=== PATIENT | female | born 1955 | race Caucasian/White ===

== ENCOUNTER → 2017-03-25 | Outpatient (REF) | payer OTHER ==
[~2017-03-25] MED LIST: *MAMMOGRAM; *WHEELCHAI; /ADVA50050; /ESOM40CA; /METH500TA; ACET-654 PO; ACET65TA; ACTO45TA; ACTOS15 PO; ACTOS45 PO; ADV250INH INH; ADVAIR200 INHALATION; ALBOTERNEB INHALATION; ALBU83IN INH; ALBUTEROL INHALATION; ALCOHOL TOP; AMBIENCR PO; AMBIENCR12 PO; AMIT50TA PO; AMLO10TA2 PO; AMOXIL875 PO; ASPI1TAB PO; ASPI81TA83; ATENOLO100 PO; ATENOLOL50 PO; ATOR1TAB21 PO; AUGXR7 PO; AVAPRO150 PO; AVINZA30 PO; BIAXINXL PO; BISO5TAB5 PO; BONIVA PO; CAHNTIXC PO; CALCTAB22; CALCTAB75 PO; CIPRO500 PO; CLARINEX; CLARINEX PO; COLA100C3 PO; CRES40TA PO; DAYPRO PO; DELT1TAB PO; DEXA; DIFLUC150 PO; DURAGE TOPICAL; FLEXERIL10 PO; FLUC10TA; FOLI1TAB2 PO; FURO10IN17 IV; FURO40TA2 PO; GABA-282 PO; GABA800T PO; GLUCCOSEAC TOPICAL; GLUCOP1000 PO; GLUCOTROL5 PO; GUAI1TAB PO; HCTZ25 PO; HCTZ50 PO; HUMU70IN SC; HUMULIN INSULIN; HUMULIN703 SC; HUMULINR SC; HYDR-3716 PO; IMODIUM2 PO; INSURSD SC; IPRASOL4 INH; ISOS30BRAN; ISOS30TA4; ISOS30TA4 PO; KADIAN; KADIAN PO; KEFLEX500 PO; KETEK PO; KLORCON20 PO; LANCMIS; LANCMIS TYPICAL; LASI40TA; LASIX40 PO; LEVA750T PO; LEVO50TA5 PO; LEVO88TA4; LIDODERM TOPICAL; LIPITOR80 PO; LISI-538 PO; LISI10TA4; LISI10TA4 PO; LISINOPR10 PO; LISINOPR40 PO; LOFIBRA PO; LOPE2TAB3 PO; LOPERAMIDE; LOPRESS100 PO; LOPRESS50 PO; METH-107 PO; MIACALCIN; MILKSUS; MOBIC15 PO; MONOPRIL10 PO; MONOPRIL40 PO; MUCI600T34 PO; MULTIVIT PO; NEEDLEBB SC; NEEDLESFIN SQ; NEEDLESGP; NEUR800T; NEURONTIN1 PO; NEURONTIN3 PO; NEURONTIN4 PO; NEURONTIN6 PO; NEURONTIN8 PO; NEXIUM40 PO; NICO21PAT TD; NICODERM TOPICAL; NICODERM14 TOPICAL; NICOTROLIN PO; NITR0.4S; NITROSTAT4 SL; OSCAL; OSCAL600 PO; OXYC1TAB56 PO; OXYC1TAB57 PO; OXYCON10 PO; PANT40TA2 PO; PERC7.5T8; PLAV75TA2; PLAVIX75 PO; POTA20TA; POTA20TA PO; PRAVACHOL2 PO; PREMPRO PO; PROB1TAB PO; PROG20CAP; ROBAXIN PO; ROBAXIN500 PO; SERT-138 PO; SERT100T; SHOWERCH; SIMV20TA2; SYNTHRO025 PO; TESSALO100 PO; THERGRAN; TIOT18INH INH; TRIC145T19; TRICOR145 PO; TRICOR48 PO; TRIL135C6 PO; TYLENOL#3 PO; TYLENOLCOD PO; VALTREX100 PO; VARE1TA; VIBR100C; VICODIN PO; VICODIN-ES PO; VICODIN10 PO; VIOXX125 PO; VIOXX25 PO; VITA-121 PO; VITA100072 PO; VITAMIND PO; WALKER; XOPE0.632; XOPENEX63 NEB; ZEBE5TAB; ZEBETA5 PO; ZETI10TA; ZETIA PO; ZOCOR20 PO; ZOCOR40 PO; ZOLOFT100 PO; ZOLOFT50 PO; ZOSY3INJ2 IV; [UNRECOGNIZED DRUG - CODE] IV; [UNRECOGNIZED DRUG - CODE] PO; [UNRECOGNIZED DRUG - CODE] PO; [UNRECOGNIZED DRUG - CODE] PO; [UNRECOGNIZED DRUG - CODE] PO; [UNRECOGNIZED DRUG - CODE] PO; [UNRECOGNIZED DRUG - CODE] SC; [UNRECOGNIZED DRUG - CODE] SC; [UNRECOGNIZED DRUG - OTHER]; [UNRECOGNIZED DRUG - OTHER]; [UNRECOGNIZED DRUG - OTHER]; [UNRECOGNIZED DRUG - OTHER] -; [UNRECOGNIZED DRUG - OTHER] SC; [UNRECOGNIZED DRUG - OTHER] SC; [UNRECOGNIZED DRUG - OTHER] TOPICAL
[2017-03-26 11:49] LABS: MEAN CORPUSCULAR HGB CONC 31.6 g/dl (32.0-36.5); MEAN CORPUSCULAR VOLUME 97.9 fl (80.0-96.0); RED CELL DISTRIBUTION WIDTH 13.5 % (11.5-14.5); WHITE BLOOD COUNT 3.9 K/mm3 (4.0-10.0)
[2017-03-26 12:00] LABS: ANION GAP 5 MEQ/L (8-16); BLOOD UREA NITROGEN 13 MG/DL (7-18); CALCIUM LEVEL 9.2 MG/DL (8.5-10.1); CARBON DIOXIDE LEVEL 37 MEQ/L (21-32); CHLORIDE LEVEL 97 MEQ/L (98-107); CREATININE FOR GFR 0.97 MG/DL (0.55-1.02); GLOMERULAR FILTRATION RATE > 60.0 (>51); GLUCOSE, FASTING 255 MG/DL (70-105); POTASSIUM SERUM 4.7 MEQ/L (3.5-5.1); SODIUM LEVEL 139 MEQ/L (136-145)
== END ==
LOC: M LABDRAWC 11:28
PROVIDERS: ATTEND Nurse Practitioner Family
DX: I25.10 Atherosclerotic heart disease of native coronary artery without angina pectoris (principal); I10 Essential (primary) hypertension

== ENCOUNTER → 2017-08-10 | Outpatient (REF) | payer OTHER ==
[~2017-08-10] MED LIST changes: -ACET-654 PO; +ACET1TAB17 PO; -COLA100C3 PO; +COLA100C5 PO; -FOLI1TAB2 PO; +FOLI1TAB4 PO; -LEVA750T PO; +LEVA750T7 PO; -METH-107 PO; +METH1TAB40 PO; -MUCI600T34 PO; +MUCI600T37 PO; +OXYC-404 PO; +OXYC-405 PO; -OXYC1TAB56 PO; -OXYC1TAB57 PO
[2017-08-10 20:10] LABS: FOLATE > 24.0 NG/ML; VITAMIN B12 LEVEL 1286 PG/ML
[2017-08-10 20:18] LABS: FERRITIN 122 NG/ML (8-252); PERCENT SATURATION 15.8 % (13.2-45.0); TOTAL IRON BINDING CAPACITY 425 UG/DL (250-450)
== END ==
LOC: M LAB REF 17:00
PROVIDERS: ATTEND Internal Medicine Nephrology
DX: D64.9 Anemia, unspecified (principal)

== ENCOUNTER → 2017-11-02 | Outpatient (CLI) | payer OTHER ==
[~2017-11-02] MED LIST changes: -*MAMMOGRAM; -*WHEELCHAI; -/ADVA50050; -/ESOM40CA; -/METH500TA; -ACET1TAB17 PO; -ACET65TA; -ACTO45TA; -ACTOS15 PO; -ACTOS45 PO; -ADV250INH INH; -ADVAIR200 INHALATION; -ALBOTERNEB INHALATION; -ALBU83IN INH; -ALBUTEROL INHALATION; -ALCOHOL TOP; -AMBIENCR PO; -AMBIENCR12 PO; -AMIT50TA PO; -AMLO10TA2 PO; -AMOXIL875 PO; -ASPI1TAB PO; -ASPI81TA83; -ATENOLO100 PO; -ATENOLOL50 PO; -ATOR1TAB21 PO; -AUGXR7 PO; -AVAPRO150 PO; -AVINZA30 PO; -BIAXINXL PO; -BISO5TAB5 PO; -BONIVA PO; -CAHNTIXC PO; -CALCTAB22; -CALCTAB75 PO; -CIPRO500 PO; -CLARINEX; -CLARINEX PO; -COLA100C5 PO; -CRES40TA PO; -DAYPRO PO; -DELT1TAB PO; -DEXA; -DIFLUC150 PO; -DURAGE TOPICAL; -FLEXERIL10 PO; -FLUC10TA; -FOLI1TAB4 PO; -FURO10IN17 IV; -FURO40TA2 PO; -GABA-282 PO; -GABA800T PO; +GASTROGRAFIN SOLUTION 30ML (Q9963) As Ordered; -GLUCCOSEAC TOPICAL; -GLUCOP1000 PO; -GLUCOTROL5 PO; -GUAI1TAB PO; -HCTZ25 PO; -HCTZ50 PO; -HUMU70IN SC; -HUMULIN INSULIN; -HUMULIN703 SC; -HUMULINR SC; -HYDR-3716 PO; -IMODIUM2 PO; -INSURSD SC; -IPRASOL4 INH; -ISOS30BRAN; -ISOS30TA4; -ISOS30TA4 PO; -KADIAN; -KADIAN PO; -KEFLEX500 PO; -KETEK PO; -KLORCON20 PO; -LANCMIS; -LANCMIS TYPICAL; -LASI40TA; -LASIX40 PO; -LEVA750T7 PO; -LEVO50TA5 PO; -LEVO88TA4; -LIDODERM TOPICAL; -LIPITOR80 PO; -LISI-538 PO; -LISI10TA4; -LISI10TA4 PO; -LISINOPR10 PO; -LISINOPR40 PO; -LOFIBRA PO; -LOPE2TAB3 PO; -LOPERAMIDE; -LOPRESS100 PO; -LOPRESS50 PO; -METH1TAB40 PO; -MIACALCIN; -MILKSUS; -MOBIC15 PO; -MONOPRIL10 PO; -MONOPRIL40 PO; -MUCI600T37 PO; -MULTIVIT PO; -NEEDLEBB SC; -NEEDLESFIN SQ; -NEEDLESGP; -NEUR800T; -NEURONTIN1 PO; -NEURONTIN3 PO; -NEURONTIN4 PO; -NEURONTIN6 PO; -NEURONTIN8 PO; -NEXIUM40 PO; -NICO21PAT TD; -NICODERM TOPICAL; -NICODERM14 TOPICAL; -NICOTROLIN PO; -NITR0.4S; -NITROSTAT4 SL; -OSCAL; -OSCAL600 PO; -OXYC-404 PO; -OXYC-405 PO; -OXYCON10 PO; -PANT40TA2 PO; -PERC7.5T8; -PLAV75TA2; -PLAVIX75 PO; -POTA20TA; -POTA20TA PO; -PRAVACHOL2 PO; -PREMPRO PO; -PROB1TAB PO; -PROG20CAP; -ROBAXIN PO; -ROBAXIN500 PO; -SERT-138 PO; -SERT100T; -SHOWERCH; -SIMV20TA2; -SYNTHRO025 PO; -TESSALO100 PO; -THERGRAN; -TIOT18INH INH; -TRIC145T19; -TRICOR145 PO; -TRICOR48 PO; -TRIL135C6 PO; -TYLENOL#3 PO; -TYLENOLCOD PO; -VALTREX100 PO; -VARE1TA; -VIBR100C; -VICODIN PO; -VICODIN-ES PO; -VICODIN10 PO; -VIOXX125 PO; -VIOXX25 PO; -VITA-121 PO; -VITA100072 PO; -VITAMIND PO; -WALKER; -XOPE0.632; -XOPENEX63 NEB; -ZEBE5TAB; -ZEBETA5 PO; -ZETI10TA; -ZETIA PO; -ZOCOR20 PO; -ZOCOR40 PO; -ZOLOFT100 PO; -ZOLOFT50 PO; -ZOSY3INJ2 IV; -[UNRECOGNIZED DRUG - CODE] IV; -[UNRECOGNIZED DRUG - CODE] PO; -[UNRECOGNIZED DRUG - CODE] PO; -[UNRECOGNIZED DRUG - CODE] PO; -[UNRECOGNIZED DRUG - CODE] PO; -[UNRECOGNIZED DRUG - CODE] PO; -[UNRECOGNIZED DRUG - CODE] SC; -[UNRECOGNIZED DRUG - CODE] SC; -[UNRECOGNIZED DRUG - OTHER]; -[UNRECOGNIZED DRUG - OTHER]; -[UNRECOGNIZED DRUG - OTHER]; -[UNRECOGNIZED DRUG - OTHER] -; -[UNRECOGNIZED DRUG - OTHER] SC; -[UNRECOGNIZED DRUG - OTHER] SC; -[UNRECOGNIZED DRUG - OTHER] TOPICAL
== END ==
LOC: M RAD 08:51
DX: J98.11 Atelectasis (principal)
CPT/HCPCS: Q9963

== ENCOUNTER → 2018-01-06 | Outpatient (REF) | payer OTHER ==
[2018-01-07 12:15] LABS: HEMATOCRIT 34.5 % (36.0-47.0); HEMOGLOBIN 11.3 g/dl (12.0-16.0); MEAN CORPUSCULAR HEMOGLOBIN 30.6 pg (27.0-33.0); MEAN CORPUSCULAR HGB CONC 32.8 g/dl (32.0-36.5); MEAN CORPUSCULAR VOLUME 93.5 fl (80.0-96.0); PLATELET COUNT, AUTOMATED 199 10^3/uL (150-450); RED BLOOD COUNT 3.69 10^6/uL (4.00-5.40); RED CELL DISTRIBUTION WIDTH 13.5 % (11.5-14.5); WHITE BLOOD COUNT 3.9 10^3/uL (4.0-10.0)
[2018-01-07 12:27] LABS: ANION GAP 3 MEQ/L (8-16); BLOOD UREA NITROGEN 14 MG/DL (7-18); CARBON DIOXIDE LEVEL 38 MEQ/L (21-32); CHLORIDE LEVEL 98 MEQ/L (98-107); CREATININE FOR GFR 0.79 MG/DL (0.55-1.30); GLOMERULAR FILTRATION RATE > 60.0 (>45); GLUCOSE, FASTING 191 MG/DL (70-100); POTASSIUM SERUM 3.7 MEQ/L (3.5-5.1); SODIUM LEVEL 139 MEQ/L (136-145)
[2018-01-07 12:39] LABS: ESTIMATED AVERAGE GLUCOSE 169 MG/DL (60-110); HEMOGLOBIN A1c 7.5 %
== END ==
LOC: M SFHCCLAY 16:26
DX: E11.69 Type 2 diabetes mellitus with other specified complication (principal); J96.12 Chronic respiratory failure with hypercapnia; I50.32 Chronic diastolic (congestive) heart failure
CPT/HCPCS: 83036

== ENCOUNTER → 2018-02-04 | Outpatient (CLI) | payer OTHER | END | disposition home or self-care (01) | LOC: M PAIN 14:00 | DX: G89.29 Other chronic pain (principal); M79.1 Myalgia; I50.9 Heart failure, unspecified; I11.0 Hypertensive heart disease with heart failure; E11.40 Type 2 diabetes mellitus with diabetic neuropathy, unspecified; E11.21 Type 2 diabetes mellitus with diabetic nephropathy; M81.0 Age-related osteoporosis without current pathological fracture; J44.9 Chronic obstructive pulmonary disease, unspecified; E03.9 Hypothyroidism, unspecified; I25.119 Atherosclerotic heart disease of native coronary artery with unspecified angina pectoris; F41.9 Anxiety disorder, unspecified; F32.9 Major depressive disorder, single episode, unspecified; G47.33 Obstructive sleep apnea (adult) (pediatric); E55.9 Vitamin D deficiency, unspecified; K21.9 Gastro-esophageal reflux disease without esophagitis; K76.0 Fatty (change of) liver, not elsewhere classified; K58.9 Irritable bowel syndrome, unspecified; Z85.3 Personal history of malignant neoplasm of breast; Z85.118 Personal history of other malignant neoplasm of bronchus and lung; I25.2 Old myocardial infarction; Z87.891 Personal history of nicotine dependence; Z79.82 Long term (current) use of aspirin; Z79.02 Long term (current) use of antithrombotics/antiplatelets; Z79.4 Long term (current) use of insulin; Z95.5 Presence of coronary angioplasty implant and graft; Z88.2 Allergy status to sulfonamides; Z91.041 Radiographic dye allergy status; Z91.048 Other nonmedicinal substance allergy status; Z88.8 Allergy status to other drugs, medicaments and biological substances | CPT/HCPCS: G0463 ==

== ENCOUNTER → 2018-02-23 | Outpatient (CLI) | payer OTHER ==
[~2018-02-23] MED LIST changes: +BUPIVACAINE HCL 0.25% 10 ML VIAL As Ordered; +BUPIVACAINE HCL 0.25% 30 ML VIAL As Ordered; -GASTROGRAFIN SOLUTION 30ML (Q9963) As Ordered
== END ==
LOC: M PAIN 10:15
DX: G89.29 Other chronic pain (principal); M54.2 Cervicalgia; M25.511 Pain in right shoulder; M79.1 Myalgia; I25.2 Old myocardial infarction; I10 Essential (primary) hypertension; E11.22 Type 2 diabetes mellitus with diabetic chronic kidney disease; E11.42 Type 2 diabetes mellitus with diabetic polyneuropathy; M19.90 Unspecified osteoarthritis, unspecified site; J43.9 Emphysema, unspecified; F41.9 Anxiety disorder, unspecified; F32.9 Major depressive disorder, single episode, unspecified; G47.33 Obstructive sleep apnea (adult) (pediatric); Z79.01 Long term (current) use of anticoagulants; Z79.4 Long term (current) use of insulin; Z79.899 Other long term (current) drug therapy; Z88.1 Allergy status to other antibiotic agents; Z88.2 Allergy status to sulfonamides; Z88.8 Allergy status to other drugs, medicaments and biological substances; Z91.09 Other allergy status, other than to drugs and biological substances; Z91.041 Radiographic dye allergy status; Z86.79 Personal history of other diseases of the circulatory system; Z85.3 Personal history of malignant neoplasm of breast; Z85.118 Personal history of other malignant neoplasm of bronchus and lung; Z87.891 Personal history of nicotine dependence
CPT/HCPCS: 20553

== ENCOUNTER → 2018-03-01 | Outpatient (CLI) | payer OTHER | LOC: M CLY 15:46 | DX: M54.5 Low back pain (principal); G89.29 Other chronic pain | CPT/HCPCS: 72110 ==

== ENCOUNTER → 2018-03-16 | Outpatient (CLI) | payer OTHER | LOC: M PLARAD 11:17 | DX: C34.90 Malignant neoplasm of unspecified part of unspecified bronchus or lung (principal) | CPT/HCPCS: 78815 ==

== ENCOUNTER → 2018-06-24 | Outpatient (CLI) | payer OTHER | LOC: M CLY 13:02 | DX: G89.29 Other chronic pain (principal); K59.09 Other constipation | CPT/HCPCS: 74018 ==

== ENCOUNTER → 2018-09-21 | Outpatient (REF) | payer OTHER ==
[2018-09-22 11:52] LABS: HEMATOCRIT 30.4 % (36.0-47.0); HEMOGLOBIN 9.1 g/dl (12.0-15.5); MEAN CORPUSCULAR HEMOGLOBIN 29.4 pg (27.0-33.0); MEAN CORPUSCULAR HGB CONC 29.9 g/dl (32.0-36.5); MEAN CORPUSCULAR VOLUME 98.1 fl (80.0-96.0); PLATELET COUNT, AUTOMATED 173 10^3/uL (150-450); RED CELL DISTRIBUTION WIDTH 13.6 % (11.5-14.5); WHITE BLOOD COUNT 3.4 10^3/uL (4.0-10.0)
[2018-09-22 12:08] LABS: ALBUMIN/GLOBULIN RATIO 0.91 (1.00-1.93); ALKALINE PHOSPHATASE 86 U/L (45-117); ALT/SGPT 16 U/L (12-78); ANION GAP 5 MEQ/L (8-16); AST/SGOT 27 U/L (7-37); BILIRUBIN,TOTAL 0.6 MG/DL (0.2-1.0); BLOOD UREA NITROGEN 20 MG/DL (7-18); CALCIUM LEVEL 8.1 MG/DL (8.8-10.2); CARBON DIOXIDE LEVEL 36 MEQ/L (21-32); CHLORIDE LEVEL 101 MEQ/L (98-107); CHOLESTEROL LEVEL 159 MG/DL (<200); CHOLESTEROL RISK RATIO 5.888 (<5); CREATININE FOR GFR 0.82 MG/DL (0.55-1.30); GLOMERULAR FILTRATION RATE > 60.0 (>45); GLUCOSE, FASTING 220 MG/DL (70-100); HDL CHOLESTEROL 27 MG/DL (>40); LDL CHOLESTEROL 75 MG/DL (<100); NON-HDL-C 132 MG/DL; SODIUM LEVEL 142 MEQ/L (136-145); TOTAL 25(OH) VITAMIN D 21.4 NG/ML (30.0-100.0); TOTAL PROTEIN 6.3 GM/DL (6.4-8.2); TRIGLYCERIDES LEVEL 286 MG/DL (<150)
[2018-09-22 12:12] LABS: ESTIMATED AVERAGE GLUCOSE 105 MG/DL (60-110); HEMOGLOBIN A1c 5.3 %
== END ==
LOC: M SFHCCLAY 14:04
DX: E11.69 Type 2 diabetes mellitus with other specified complication (principal); I10 Essential (primary) hypertension; I25.10 Atherosclerotic heart disease of native coronary artery without angina pectoris; E55.9 Vitamin D deficiency, unspecified; E03.9 Hypothyroidism, unspecified

== ENCOUNTER → 2018-09-21 | Outpatient (CLI) | payer OTHER | LOC: M CLY 14:18 | DX: S52.532A Colles' fracture of left radius, initial encounter for closed fracture (principal); S52.692A Other fracture of lower end of left ulna, initial encounter for closed fracture; M79.89 Other specified soft tissue disorders; W19.XXXA Unspecified fall, initial encounter; Y92.9 Unspecified place or not applicable | CPT/HCPCS: 73090 ==

== ENCOUNTER → 2018-09-23 | Outpatient (REF) | payer OTHER ==
[2018-09-23 12:37] LABS: CREATININE, URINE 27.1 MG/DL; MAU/CREAT RATIO 5055.3 MCG/MG (0.0-30.0)
== END ==
LOC: M SFHCCLAY 09:57
DX: E11.69 Type 2 diabetes mellitus with other specified complication (principal); I10 Essential (primary) hypertension; I25.10 Atherosclerotic heart disease of native coronary artery without angina pectoris; E55.9 Vitamin D deficiency, unspecified; E03.9 Hypothyroidism, unspecified